=== PATIENT | female | born 1990 | race Caucasian/White ===

== ENCOUNTER 2024-02-28 01:44 | Emergency (ER) | payer SELFPAY ==
[~2024-02-28] VITALS: Ht 162.6 cm; Wt 64.0 kg
[2024-02-28 01:46] VITALS: O2SAT 98
[2024-02-28 03:31] LABS: HCG SCREEN NEGATIVE
[2024-02-28 03:37] VITALS: BP 119/58; PULSE 80; RESP 16; TEMP 36.55848; O2SAT 97
[2024-02-28] MEDS ORDERED: BENZ200C52 MT (03:45)
[2024-02-28] MEDS: ONDANSETRON HCL 4MG TABLET PO ONE (04:09)
== END 2024-02-28 04:29 | disposition home or self-care (01) ==
LOC: ER 01:44
DX: R05.9 Cough, unspecified (principal); I49.9 Cardiac arrhythmia, unspecified
CPT/HCPCS: 99285; 71045; 84703; 93005; Q0162